=== PATIENT | female | born 1955 | race Caucasian/White ===

== ENCOUNTER 2018-11-02 20:29 | Emergency (ER) | payer OTHER, MEDICAID ==
[~2018-11-02] VITALS: Ht 152.4 cm; Wt 68.0 kg
[2018-11-02 20:44] VITALS: BP 155/66
--- NOTE | 2018-11-02 21:00 | NUR ---
PT AMBULATED TO BED 12 WITH STEADY GAIT USING CANE ASSIST. PT IN GOWN, ON MONITOR. PRIMARY NURSE MADE AWARE OF PT'S STATUS.
[2018-11-02] MEDS ORDERED: QUET300T1 PO (21:10)
[2018-11-02] MEDS ORDERED: ABI10 PO (21:10)
[2018-11-02] MEDS ORDERED: CLON0.5T PO (21:10)
[2018-11-02] MEDS ORDERED: LAM200 PO (21:10)
[2018-11-02] MEDS ORDERED: SERT100T PO (21:10)
--- NOTE | 2018-11-02 21:10 | NUR ---
PT CAME TO ER C/O LEFT FOOT PAIN WITH NUMBNESS X 10 DAYS. PT WAS ADMITTED TO [facility] [place] FOR NUMBNESS TO RIGHT SIDE OF BODY. PT WAS TREATED FOR CVA ON 10/25/18. PT AWAKE AND ALERT. PER PT ONLY LEFT FOOT HURTS. PAIN LEVEL 10/10, "HOT/COOL, NUMBNESS AND TINGLING FEELING TO LEFT FOOT." FACIAL AND SPEECH DEFECITS WERE NOTED FROM PREVIOUS CVA. DENIES ANY NEW ONSET OF S/SX. ALLERGIES: SULFA MED HX: ANEURYSM 30 YEARS AGO, CVA ON 10/25/18, HTN, HYPERLIPIDEMIA, PREDIABETIC, AND SHIZOAFFECTIVE. SAFETY MEASURES IN PLACE. ERMD AT BEDSIDE.
[2018-11-02] MEDS ORDERED: GABA300C PO (21:11)
[2018-11-02] MEDS ORDERED: CLOP75TA26 PO (21:12)
[2018-11-02] MEDS ORDERED: ATEN25TA7 PO (21:12)
[2018-11-02] MEDS ORDERED: traMADol 50 MG TAB PO ONE (21:20)
[2018-11-02 22:21] VITALS: BP 149/72
--- NOTE | 2018-11-02 22:21 | NUR ---
Patient discharged with v/s stable. Written and verbal after care instructions given and explained. Patient alert, oriented and verbalized understanding of instructions. Ambulatory with steady gait. All questions addressed prior to discharge. ID band removed. Patient advised to follow up with PMD. Rx of Gabapentin 600mg and lidoderm 5% transdermal patch given. Patient educated on indication of medication including possible reaction and side effects. Opportunity to ask questions provided and answered.
== END 2018-11-02 22:21 | disposition home or self-care (01) ==
LOC: MED 20:29
DX: G62.9 Polyneuropathy, unspecified (principal); I10 Essential (primary) hypertension; E11.9 Type 2 diabetes mellitus without complications; E78.5 Hyperlipidemia, unspecified; F25.9 Schizoaffective disorder, unspecified; Z79.899 Other long term (current) drug therapy; Z86.73 Personal history of transient ischemic attack (TIA), and cerebral infarction without residual deficits
CPT/HCPCS: 99283

== ENCOUNTER 2021-05-31 18:11 | Emergency (ER) | payer OTHER ==
[~2021-05-31] VITALS: Ht 154.9 cm; Wt 62.6 kg
[~2021-05-31 18:11] MED LIST: ABI10 PO; ATEN25TA7 PO; CLON0.5T PO; CLOP75TA26 PO; GABA300C PO; LAM200 PO; QUET300T1 PO; SERT100T PO
[2021-05-31 18:17] VITALS: BP 135/82
--- NOTE | 2021-05-31 18:20 | NUR ---
PATIENT AMBULATED WITH ASSISTIVE DEVICE TO BED 7.
--- NOTE | 2021-05-31 18:30 | NUR ---
65 y/o female carolyn breen c/o med refill and right knee pain. pt states she broke her right tibia 05/22/21, pt states she needs medication for pain, ran out of rx medication hydrocodone. pcp appointment 07/04/21. denies sloan, fever, n/v, or chest pain. noted immobilizer on right lower extremity. pt ambulatory with assistive device. safety precautions in place. bed in locked position. pmh: schizophrenia allergy: sulfa med: denies Addendum: 05/31/21 at 1854 by JOHN 65 y/o female carolyn breen c/o med refill and right knee pain. pt states she broke her right tibia 05/22/21, pt states she needs medication for pain, ran out of rx medication hydrocodone. pcp appointment 07/04/21. denies sloan, fever, n/v, or chest pain. noted immobilizer on right lower extremity. pt ambulatory with assistive device. safety precautions in place. bed in locked position. pmh: schizophrenia, DM, HTN allergy: sulfa med: denies
--- NOTE | 2021-05-31 18:30 | NUR ---
DR. KING AT BEDSIDE
[2021-05-31] MEDS ORDERED: ACET-8386 PO (19:06)
--- NOTE | 2021-05-31 19:14 | NUR ---
Patient discharged with v/s stable. Written and verbal after care instructions given and explained Patellar Fracture, Medicine Refill at the ER. Patient alert, oriented and verbalized understanding of instructions. Ambulatory with steady gait. All questions addressed prior to discharge. ID band removed. Patient advised to follow up with PMD. Rx of Hydrocodone/Acetaminophen given. Patient educated on indication of medication including possible reaction and side effects. Opportunity to ask questions provided and answered.
== END 2021-05-31 19:14 | disposition home or self-care (01) ==
LOC: MED 18:11
DX: F20.9 Schizophrenia, unspecified (principal); E11.9 Type 2 diabetes mellitus without complications; I10 Essential (primary) hypertension; Z76.0 Encounter for issue of repeat prescription; Z79.899 Other long term (current) drug therapy
CPT/HCPCS: 99281

== ENCOUNTER 2022-07-02 01:05 | Emergency (ER) | payer OTHER, MEDICAID ==
[~2022-07-02] VITALS: Ht 152.4 cm; Wt 54.4 kg
[~2022-07-02 01:05] MED LIST changes: +ACET-8905 PO; +CLOP-68 PO; -CLOP75TA26 PO
[2022-07-02 02:05] VITALS: BP 140/95
[2022-07-02 02:10] VITALS: BP 140/95
[2022-07-02] MEDS ORDERED: diphenhydrAMINE 50 MG/ML VIAL IM ONE (04:00)
[2022-07-02] MEDS ORDERED: DEXAMETHASONE 10 MG/ML VIAL IM ONE (04:00)
--- NOTE | 2022-07-02 04:10 | NUR ---
MEDICATED PER ERMDS ORDER, TOLERATED WELL.
[2022-07-02] MEDS ORDERED: HYDR-637 PO (05:10)
[2022-07-02] MEDS ORDERED: PRED20TA5 PO (05:10)
[2022-07-02 05:45] LABS: BASOPHILS # (AUTO) 0.1 K/uL (0.00-0.22); BASOPHILS % (AUTO) 0.6 % (0.0-2.0); EOSINOPHILS # (AUTO) 0.5 K/uL (0-0.4); EOSINOPHILS % (AUTO) 5.4 % (0.0-4.0); HEMATOCRIT 36.2 % (36-48); HEMOGLOBIN 12.1 g/dL (12.0-16.0); LYMPHOCYTES # (AUTO) 2.3 K/uL (2.5-16.5); LYMPHOCYTES % (AUTO) 24.6 % (20.5-51.1); MEAN CORPUSCULAR HEMOGLOBIN 32 pg (27-31); MEAN CORPUSCULAR HGB CONC 34 g/dL (33-37); MEAN CORPUSCULAR VOLUME 94.4 fL (80-94); MONOCYTES # (AUTO) 0.6 K/uL (0.8-1.0); MONOCYTES % (AUTO) 6.5 % (1.7-9.3); NEUTROPHILS # (AUTO) 5.8 K/uL (1.8-7.7); NEUTROPHILS % (AUTO) 62.9 % (42.2-75.2); PLATELET COUNT (AUTO) 294 K/uL (140-450); RED BLOOD CELL COUNT(AUTO) 3.84 MIL/uL (4.20-5.40); WHITE BLOOD COUNT (AUTO) 9.3 K/uL (4.8-10.8)
[2022-07-02 06:06] LABS: ALBUMIN 3.5 g/dL (3.4-5.0); ANION GAP 10.8 (8-16); CARBON DIOXIDE 28.6 mmol/L (21-32); CREATININE 0.7 mg/dL (0.6-1.3); POTASSIUM 3.4 mmol/L (3.5-5.1); TOTAL BILIRUBIN 0.3 mg/dL (0.0-1.0)
== END 2022-07-02 05:15 | disposition home or self-care (01) ==
LOC: MED 01:05
DX: L29.9 Pruritus, unspecified (principal); E11.9 Type 2 diabetes mellitus without complications; I11.0 Hypertensive heart disease with heart failure; Z79.4 Long term (current) use of insulin; Z79.899 Other long term (current) drug therapy
CPT/HCPCS: 36415; 80053; 85025; 96372; 99284; J1100; J1200

== ENCOUNTER 2022-09-11 20:05 | Emergency (ER) | payer OTHER, MEDICAID ==
[~2022-09-11 20:05] MED LIST changes: +HYDR-637 PO; +PRED20TA5 PO
--- NOTE | 2022-09-11 20:08 | NUR ---
PT TAKEN TO BED 9
--- NOTE | 2022-09-11 20:09 | NUR ---
Dr. Mares examining patient.
--- NOTE | 2022-09-11 20:13 | NUR ---
PT REFUSES TREATMENT STATES "RELEASE ME NOW, ID RATHER THAN GO TO [place]". YUAN HENDRIX AT BEDSIDE. UNABLE TO COMPLETE TRIAGE.
--- NOTE | 2022-09-11 20:13 | NUR ---
PT DID NOT SIGN AMA, BUT RISKS WERE DISCUSSED UP TO AND INCLUDING . PT WALKED OUT REFUSING TO SIGN AMA FORM
--- NOTE | 2022-09-11 20:14 | NUR ---
PT REFUSED TO ALLOW STAFF TO REMOVE ARMBAND.
== END 2022-09-11 20:13 | disposition left against medical advice (07) ==
LOC: MED 20:05
DX: I63.9 Cerebral infarction, unspecified (principal); E11.9 Type 2 diabetes mellitus without complications; I10 Essential (primary) hypertension; Z79.899 Other long term (current) drug therapy; Z79.01 Long term (current) use of anticoagulants
CPT/HCPCS: 99281